=== PATIENT | female | born 1980 | race Caucasian/White ===

== ENCOUNTER 2023-12-30 19:35 | Emergency (ER) | payer OTHER ==
[~2023-12-30] VITALS: Ht 162.6 cm; Wt 95.0 kg
[~2023-12-30 19:35] MED LIST: PRENATAL CAPSU1 EACH PO; XANAX0.25 MG PO
[2023-12-30] MEDS ORDERED: TOBRADEX EYE O3.5 GM OPTH (22:55)
[2023-12-30 23:05] VITALS: BP 143/89
== END 2023-12-30 23:05 | disposition home or self-care (01) ==
LOC: ED 19:35
DX: H00.011 Hordeolum externum right upper eyelid (principal); Z88.0 Allergy status to penicillin
CPT/HCPCS: 67700; 99283-25